=== PATIENT | male | born 1960 | race Caucasian/White ===

== ENCOUNTER → 2016-12-02 | Outpatient (CLI) | payer BC | END | disposition home or self-care (01) | LOC: M SMT 11:09 | PROVIDERS: ATTEND Urology | DX: R97.20 Elevated prostate specific antigen [PSA] (principal) ==

== ENCOUNTER 2017-03-21 14:57 | Emergency (ER) | payer BC ==
[~2017-03-21] VITALS: Ht 182.9 cm; Wt 90.7 kg
[2017-03-21] MEDS ORDERED: NS 500 ML IV ONE (15:15)
[2017-03-21 15:39] LABS: WHITE BLOOD COUNT 9.5 K/mm3 (4.0-10.0)
[2017-03-21 15:40] LABS: BASO # 0.1 K/mm3 (0.0-0.2); BASO % 0.5 % (0.0-1.0); DIFF SLIDE NUMBER 293; EOS # 0.1 K/mm3 (0.0-0.50); EOS % 1.5 % (0.0-3.0); LARGE UNSTAINED CELL # 0.1 K/mm3 (0.0-0.4); LARGE UNSTAINED CELL % 0.9 % (0.0-4.0); LYMPH # 1.3 K/mm3 (1.5-4.5); LYMPH % 13.7 % (24.0-44.0); MEAN CORPUSCULAR HEMOGLOBIN 30.6 pg (27.0-33.0); MEAN CORPUSCULAR HGB CONC 34.4 g/dl (32.0-36.5); MONO # 0.5 K/mm3 (0.0-0.8); MONO % 4.7 % (0.0-5.0); NEUTROPHILS # 7.5 K/mm3 (1.8-7.7); NEUTROPHILS % 78.8 % (36.0-66.0); PLATELET COUNT, AUTOMATED 182 k/mm3 (150-450); RED CELL DISTRIBUTION WIDTH 12.3 % (11.5-14.5)
[2017-03-21] MEDS ORDERED: PANTOPRAZOLE 40MG INJ (PROTONIX) (C9113) IV ONE (15:45)
[2017-03-21] MEDS ORDERED: ONDANSETRON 4MG/2ML VIAL (J2405) IV ONE (15:45)
[2017-03-21 15:54] LABS: ALBUMIN 4.1 GM/DL (3.2-5.2); ALBUMIN/GLOBULIN RATIO 1.03 (1.00-1.93); ALKALINE PHOSPHATASE 75 U/L (45-117); ALT/SGPT 32 U/L (12-78); ANION GAP 7 MEQ/L (8-16); AST/SGOT 17 U/L (15-37); BILIRUBIN,DIRECT 0.3 MG/DL (0.0-0.2); BILIRUBIN,TOTAL 1.3 MG/DL (0.2-1.0); BLOOD UREA NITROGEN 16 MG/DL (7-18); CALCIUM LEVEL 8.8 MG/DL (8.5-10.1); CARBON DIOXIDE LEVEL 28 MEQ/L (21-32); CHLORIDE LEVEL 105 MEQ/L (98-107); CREATININE FOR GFR 1.14 MG/DL (0.70-1.30); GLOMERULAR FILTRATION RATE > 60.0 (>56); GLUCOSE, FASTING 123 MG/DL (70-105); POTASSIUM SERUM 3.6 MEQ/L (3.5-5.1); SODIUM LEVEL 140 MEQ/L (136-145); TOTAL PROTEIN 8.1 GM/DL (6.4-8.2)
[2017-03-21] MEDS ORDERED: ISOVUE-370 76% 100ML VIAL (Q9967) As Ordered ONE (16:27)
--- NOTE | 2017-03-21 17:47 | REP ---
CT ABDOMEN AND PELVIS WITH IV CONTRAST ONLY: REASON: Abdominal pain. COMPARISON: None. CONTRAST UTILIZED: 100 mL Isovue-[id number]. The lung bases are clear. The liver, gallbladder, spleen, pancreas, adrenal glands, and kidneys are within normal limits. There are multiple well defined low density structures in each kidney all having water Hounsfield unit reading and all consistent with simple cysts. The abdominal aorta and paraortic regions are within normal limits. There is no evidence of free fluid or free air. The bowel loops and their mesenteries are within normal limits. There is no evidence of an intraabdominal mass or adenopathy. CT PELVIS: There is no mass or adenopathy. 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 The bowel loops and their mesenteries are within normal limits. There is no free fluid or free air. Bone window technique throughout the exam shows bilateral hip degenerative changes and spinal degenerative changes along with bilateral sacroiliac joint degenerative changes. There is an old healed left L1 transverse process fracture. IMPRESSION: There is no evidence of acute intraabdominal or intrapelvic disease. There is prostatomegaly. There are bilateral renal cysts. Other findings as described above. Signed by Pasquale Smith DO 03/21/2017 06:28 P
[2017-03-21] MEDS ORDERED: ZOFR4TAB3 PO (18:06)
--- NOTE | 2017-03-21 18:18 | ECGEPIP ---
Stationary ECG Study [facility] - ED Test Date: 2017-03-21 Pat Name: CATHLEEN PEÑA Department: Room: - Gender: M [employer] Tender: SALAS : 1960 Requested By: RASHEED Hull Order Number: [id number] Reading MD: Scottie Tyson Measurements Intervals [place] Rate: 64 P: 60 KS: 203 QRS: 11 QRSD: 96 T: 48 QT: 393 QTc: 407 Interpretive Statements SINUS RHYTHM [employer] RBBB NO PRIORS Electronically Signed On 03-21-2017 18:18:08 EDT by Scottie Tyson
[2017-03-21] MEDS ORDERED: LISI30TA4 PO (18:34)
[2017-03-21] MEDS ORDERED: PRIL20CA9 PO (18:34)
[2017-03-21] MEDS ORDERED: FLOM5CAP PO (18:34)
[2017-03-21] MEDS ORDERED: SIMV20TA2 PO (18:34)
[2017-03-21 18:37] VITALS: BP 169/82
== END 2017-03-21 18:46 | disposition home or self-care (01) ==
LOC: M ED 16:24
DX: R10.13 Epigastric pain (principal); R11.0 Nausea; N28.1 Cyst of kidney, acquired; I10 Essential (primary) hypertension; N40.0 Benign prostatic hyperplasia without lower urinary tract symptoms
CPT/HCPCS: 74177; 80048; 80076; 81001; 82550; 82553; 83605; 83690; 85025; 93005; 93041; 96374; 96375; 99284; C9113; J2405; Q9967

== ENCOUNTER → 2019-03-12 | Outpatient (REF) | payer BC ==
[~2019-03-12] MED LIST: FLOM0.4C39 PO; LISI-672 PO; PRIL20CA9 PO; SIMV20TA2 PO; ZOFR4TAB14 PO
== END ==
LOC: M LAB LCGH 09:18
PROVIDERS: ATTEND Specialist
DX: M16.11 Unilateral primary osteoarthritis, right hip (principal)